=== PATIENT | female | born 1990 | race Caucasian/White ===

== ENCOUNTER 2023-12-10 07:13 | Outpatient (CLI) | payer BC, SELFPAY ==
--- NOTE | 2023-12-10 07:15 | CRLHL7_ITS ---
For Patients: As a result of the Century Cures Act, medical imaging exams and procedure reports are released immediately into your electronic medical record. You may view this report before your referring provider. If you have questions, please contact your health care provider. INDICATION: Evaluate anatomy. COMPARISON: none TECHNIQUE: Real time amador scale imaging of the fetus was performed as well as color Doppler analysis of the umbilical vessels. FINDINGS: Sonographic imaging demonstrates a single living intrauterine gestation. Fetus demonstrates a regular cardiac rate of 144 beats per minute. Fetus has a vertex position. The placenta lies posteriorly without evidence of placenta previa. Placental edge 6.4 cm away from the internal cervical os. Amniotic fluid volume appears normal. Single deepest vertical pocket: 4.2 cm. The cervix is closed and measures 4.1 cm in length. The composite ultrasound gestational age is calculated at 20 weeks 0 days with an estimated sonographic due date of 04/28/2024. The estimated weight is 363 grams which lies at the 84th %. The following biometric measurements were obtained: Biparietal diameter: 4.5 cm/19 weeks 5 days 42nd% Head circumference: 17.8 cm/19 weeks 5 days 34th% Abdominal circumference: 15.5 cm/20 weeks 5 days 72nd% Femur length: 3.4 cm/20 weeks 6 days 75th% The HC/AC ratio measures: 1.10 range (1.08-1.25) On anatomic survey, there is a normal appearance of the cerebral ventricles, cavum septi pellucidi, cisterna magna and cerebellum. The nose, and lips appear normal. Incomplete visualization of profile due to position. The cervical, thoracic and lumbar spine are well visualized and appear normal. There is a normal four-chamber heart view and the left and right ventricular outflow tracts appear normal. The diaphragm and stomach appear normal. The kidneys and bladder also appear normal. There is a normal three-vessel cord and cord insertion site. The four extremities appear normal. IMPRESSION: Concordance of clinical and sonographic dating. Incomplete visualization of the profile due to position. Remainder of the anatomic survey is normal. Short-term follow-up recommended. Dictated by oKstas Saldivar MD @ 12/10/2023 12:01:46 PM (Electronically Signed)
== END 2023-12-10 07:14 | disposition home or self-care (01) ==
PROVIDERS: Visit Provider Advanced Practice Midwife
DX: Z34.92 Encounter for supervision of normal pregnancy, unspecified, second trimester (principal); Z3A.20 20 weeks gestation of pregnancy
CPT/HCPCS: 76805

== ENCOUNTER 2023-12-24 13:53 | Outpatient (CLI) | payer BC, SELFPAY ==
--- NOTE | 2023-12-24 14:00 | US_ITS ---
Patient: YARELIS HODGSON Facility:?[facility] Patient ID:?[id number] Site Patient ID:?[id number]. Site :?[id number] Study:?US-OB Pelvis -12/24/2023 2:25:54 PM Ordering Physician:BANG MAHAN Final Report: INDICATION: Facial profile not seen on survey TECHNIQUE: Limited transabdominal two-dimensional amador-scale ultrasound examination. COMPARISON: 12/10/1999 FINDINGS: There is a living fetus with gestational age of 21 weeks 6 days by LMP and EDC 04/29/2024. The heart rate is measured at 137 beats per minute and the rhythm appears regular. The amniotic fluid volume is within normal limits with single deepest pocket of 4.1 cm. The placenta is posterior and superior to the cervical os. There is no evidence of previa. The cervical length is normal at 4.0 cm. The facial profile is visualized and grossly normal. IMPRESSION: 1. Living fetus with gestational age of 21 weeks 6 days by LMP EDC of 04/29/2024. 2. Facial profile grossly normal. Dictated by Ryan Park MD @ 12/25/2023 6:21:38 AM Signed by:?Ryan Park MD @12/25/2023 6:21:38 AM (Electronic Signature)
== END 2023-12-24 13:54 | disposition home or self-care (01) ==
LOC: US 13:53
PROVIDERS: Visit Provider Advanced Practice Midwife
DX: Z34.02 Encounter for supervision of normal first pregnancy, second trimester (principal); Z3A.21 21 weeks gestation of pregnancy
CPT/HCPCS: 76816

== ENCOUNTER 2024-02-09 09:04 | Outpatient (CLI) | payer BC, SELFPAY | END 2024-02-09 09:05 | disposition home or self-care (01) | LOC: NFLDREF 09:05 | PROVIDERS: Visit Provider Advanced Practice Midwife | DX: Z34.93 Encounter for supervision of normal pregnancy, unspecified, third trimester (principal) | CPT/HCPCS: 86592; 86850; J2791 ==

== ENCOUNTER 2024-02-11 07:53 | Outpatient (CLI) | payer BC, SELFPAY | END 2024-02-11 07:54 | disposition home or self-care (01) | LOC: NFLDREF 03-01 11:11 | PROVIDERS: Visit Provider Advanced Practice Midwife | DX: R73.09 Other abnormal glucose (principal) | CPT/HCPCS: 82951; 82952 ==

== ENCOUNTER 2024-03-22 10:15 | Outpatient (RCR) | payer BC, SELFPAY | END 2024-06-21 10:58 | disposition home or self-care (01) | PROVIDERS: Visit Provider Advanced Practice Midwife | DX: Z34.90 Encounter for supervision of normal pregnancy, unspecified, unspecified trimester (principal); M43.10 Spondylolisthesis, site unspecified; M62.81 Muscle weakness (generalized); M25.559 Pain in unspecified hip; M54.50 Low back pain, unspecified; Z51.89 Encounter for other specified aftercare | CPT/HCPCS: 97110; 97140; 97161 ==

== ENCOUNTER 2024-04-04 11:30 | Outpatient (CLI) | payer BC, SELFPAY | END 2024-04-04 11:31 | disposition home or self-care (01) | LOC: NFLDREF 04-21 20:35 | PROVIDERS: Visit Provider Advanced Practice Midwife | DX: Z34.83 Encounter for supervision of other normal pregnancy, third trimester (principal) | CPT/HCPCS: 87081; 87653 ==

== ENCOUNTER 2024-04-16 02:39 | Inpatient (IN) | payer BC, SELFPAY ==
[2024-04-16] VITALS (35 sets, daily range): BP systolic 122–151; BP diastolic 69–89; PULSE 85–219; RESP 16–20; TEMP 36.4–37.1; O2SAT 81–98; BMI 33.7
[2024-04-16] MEDS: LACTATED RINGERS 1000 ML 1,000 ML 125 ML IV (03:26)
[2024-04-16 03:27] LABS: Basophils Absolute Auto 0.01 K/uL (0.00-0.30); Basophils Percent Auto 0.1 % (0.0-3.0); Eosinophils Absolute Auto 0.07 K/uL (0.00-0.50); Eosinophils Percent Auto 0.8 % (0.0-7.0); Hematocrit 35.7 % (33.0-51.0); Hemoglobin* 12.4 gm/dL (12.0-16.0); Immature Granulocytes Abs Auto 0.04 K/uL (0.00-0.30); Immature Granulocytes Pct Auto 0.4 %; Lymphocytes Percent Auto 17.7 % (20-44); Mean Corpuscular HGB Conc 35 gm/dL (32-36); Mean Corpuscular Hemoglobin 32 pg (26-34); Mean Corpuscular Volume 91 fL (80-100); Monocytes Percent Auto 5.1 % (0.0-11.0); Neutrophils Percent Auto 75.9 % (42.0-72.0); Platelet Count* 170 K/uL (140-440); Red Blood Count 3.92 m/uL (4.00-5.20); White Blood Count* 9.21 K/uL (4.50-11.00)
[2024-04-16] MEDS: AMPICILLIN 2 GM in 0.9 % SODIUM CHLORIDE Mini-bag 100 ML IVPB (03:34)
[2024-04-16 03:41] LABS: Slide Review Reflex No
[2024-04-16] MEDS: AMPICILLIN 1 GM in 0.9 % SODIUM CHLORIDE Mini-bag 100 ML IVPB ×2 (07:34→11:35)
--- NOTE | 2024-04-16 08:29 | P.LDBA_ITS ---
Subjective History of Present Illness Time Seen by Provider: 08:40 Date Seen: 04/16/24 Narrative: Patient is being admitted to Labor and Delivery for SROM. She ruptured at home at 0100. She is a 33 year old at 38.1 weeks gestation. Her full history and physical was dictated by Loly Leyva CNM on 04/11/24. Please see this for details. She was sienna some before ROM but not painfully. Since rupture at 0100 she was feeling contractions but still not painfully. She pain to feel painful contraction and have an increase in bloody show around 0815. She is sienna every 2-3 minutes and is feeling some vaginal pressure at the peak of the contractions. She is planning an unmedicated water . Her SVE was 4- 5cm/90%/0 station with some bloody show noted. She would like to consider getting into the tub in the near future. 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 A- Rhogam at 28 weeks: received 02/09/2024 Rhogam PP: 2. Hx depression and ADHD. On Adderall 7.5 BID. 3. Migraines 4. Spondylolisthesis PT referral ordered 5. Adopted. Not aware of most of her biological family history. 6. BMI 32.6 at [facility]. Taking ASA. 7. Failed 1 hr GTT, passed 3 hour (3/4 values) 8. GBS +, recommend antibiotics in labor OB Labs from [facility] ([facility]):??? Blood type: A-, antibody screen negative.??? Hgb (09/22/23): 14.3??? Platelets (09/22/23): 178??? Rubella: Immune??? RPR: non-reactive??? HBsAg: not available??? HIV: negative??? GC/Chlamydia: negative/negative??? Pap (09/07/22): NIL, HPV neg? Hep C: negative TSH: 1.39 (denies personal or family history or indications for TSH at [facility]) ?? IMAGING:??? 1st trimester: Single living intrauterine gestation at 9weeks 4 days, EDC 04/29/2024??? COVID: first series and boosted x2 Flu: July 2023 TDAP: 02/18/2024 32wk Mental Health: 03/02/2024 OB - Problem Based A/P Additional Plan (1) SROM (spontaneous rupture of membranes): Status: Acute (2) Pain during labor: Status: Acute (3) Spondylolisthesis: Status: Acute (4) Rh negative status during in first trimester: Status: Acute (5) ADHD: Problem details: Has used Adderall in the past. May desire to restart. Status: Acute (6) Depression: Problem details: Wellbutrin 75mg BID Status: Acute (7) Migraine: Problem details: Imitrex Status: Acute Plan ASSESSMENT:? at 38.1 weeks gestation? GBS positive? complicated by: ?Spondylolistesis, migraines, history of depression and ADHD (on Wellbutrin and Adderall), GBS+? Blood type:?A- ?? PLAN:? 1. Antibiotic prophylaxis treatment per protocol. 2. Desires water . Consent signed. Hep C negative.? 3. Candidate for analgesia of choice. Planning unmedicated .? 4. Anticipate ? 5. Expectant management at this time.? 6. IV in place for prophylactic antibiotics. 7. Intermittent auscultation at this time.? ? Delivery/Labor/Induction Plan Plan: expectant management OB Result Labs Blood Type: A (-) negative Rubella: immune RPR/VDLR: nonreactive GBS Status: positive OB Exam Physical Exam Vital signs: Temp Pulse BP Pulse Ox 98.6 F 86 133/79 81 L 04/16/24 07:23 04/16/24 07:23 04/16/24 07:23 04/16/24 07:23 Narrative: Psychiatric:? Alert and oriented x3? HEENT:? Normocephalic, atraumatic? Neck:? Supple without adenopathy or thyromegaly? Lungs:? Clear to auscultation bilaterally? Heart:? Regular rate and rhythm, no murmur, rub or gallop? Abdomen:? Soft, nontender, and gravid? Extremities:? No edema or erythema? Detailed Labor and Delivery Exam Patient Gravid: Yes Dilation (cm): 4 Effacement (%): 90 Cervix position: mid Consistency: soft Contraction Frequency: 2-3 minutes Contraction intensity: Strong/Firm Fetus (Single) Station: 0 Amniotic Membrane Status: SROM Amniotic Membrane Fluid Description: Clear Heart Rate Baseline: 120 Monitor Accelerations: Present Monitor Decelerations: None [employer] Counter Assistant Variability: Moderate (6-25)
[2024-04-16] MEDS: OXYTOCIN 30 unit/500 ML in NS 30 UNIT/500 ML BAG 300 UNIT IVPB (13:33)
[2024-04-16] MEDS: LIDOCAINE 1 % PF 30 ML INJECTION (13:50)
--- NOTE | 2024-04-16 14:26 | W.PM.OBVAGDE ---
OB Procedure Vag Delivery Mother Details Mother Details: The patient is a 33 year-old, 2, Para 0, admitted on 04/16/24 at 38.1 weeks gestation. She presented after SROM at home. She was initially not sienna painfully but they increased after a few hours and she progressed normally into active labor. : 2 Para: 1 Weeks Gestation: 38.1 Admission Date: 04/16/24 Additional Details Amniotic Membrane Status: SROM Amniotic Membrane Rupture Date: 04/16/24 Amniotic Membrane Rupture Time: 01:00 Amniotic Membrane Fluid Description: Clear Analgesia/Anesthesia Type: None Waterbirth: No Pitcoin: Yes ([facility] only) Intrapartal Events: Prolonged 2nd Stage >2.5 Hrs Labor Onset: 07:30 Complete: 10:15 (presumed complete with pushing ) Pushin:15 Heart: heart tones during second stage were continuous monitoring for part of pushing due to a deceleration heard by the RN during pushing. During the tracing baseline 130 + accels, moderate variability. Variable decelerations were noted to the 90-100's lasting only 10-30 seconds with good return to baseline. Decision was made to return to intermittent auscultation after an adequate tracing was obtained due to patient wishes and no medical interventions in place. FHT doppled 125 without decreases heard. before or after the contraction. Tones were difficult to obtain at the end due to descent and maternal position. Delivery Details Delivery Date: 04/16/24 Delivery Time: 13:32 Route of delivery: Infant Gender: Female Infant Viability: Alive; Heart Rate Present Position at Delivery: OA Delivery Details: Patient was admitted for SROM and progressed normally. SROM noted at 0100 with clear fluid. Patient was presumed complete with pushing at 1015. of a viable female at 1332 on her back using tug of war. She had labored and pushing in the tub for a while before deciding to get out and labor out of the water. She was given the opportunity to get back into the tub before delivery but declined. Vertex delivered direct OA. No shoulder. There was a nuchal cord scarfed around her shoulders that made descent and delivery difficult. It was too tight to reduce but impeded delivery of the body and likely contributed to the slow descent in the second stage and once was noted. Head and body did deliver with lots of maternal effort, coaching and position changes. An episiotomy was considered but she was able to deliver the head before lidocaine was available. Delivery of the head to the rest of the body was 40 seconds but the anterior shoulder was not impacted at any point. Infant passed to mothers abdomen but was limp and pale without respiratory effort so the cord was immediately clamped and cut and she was brought to the warmer. APGARS were 4 at one minute and 6 at five minutes respectively. Mouth was deep suctioned and PPV was utilized. Intact placenta with a 3 vessel cord delivered spontaneously at 1345. Fundus firm. A small 2nd degree identified and repaired in typical fashion. QBL 200 cc. Mother and baby stable; mother plans to breastfeed. weight 8lb 9oz.? 1 Minute Interval Total Score: 4 5 Minute Interval Total Score: 6 10 Minute Interval Total Score: 9 Additional Details Shoulder Dystocia: No Placenta Delivery Time: 13:45 Placental Delivery Description: Spontaneous Delivery repair: Vicryl Procedure Done: Global Blood Loss: 200 Laceration: Perineal - 2nd Degree Episiotomy Description: None Blood Loss Measurement Type: QBL Bakri Used: No Sponge/Need Count Correct: Yes Cord Vessel Description: 3 Vessels, Nuchal Cord (over the shoulders ) and Tight Event Summary Status: Mother and infant were stable after delivery. Disposition: floor
[2024-04-16] MEDS: IBUPROFEN 600 MG TABLET PO ×2 (15:51→22:27)
[2024-04-16] MEDS: ACETAMINOPHEN 500 MG TABLET 1000 MG PO (20:08)
[2024-04-16] MEDS: BENZOCAINE/MENTHOL SPRAY 85 GM AEROSOL 1 APPLIC TOPICAL (22:30)
[2024-04-17] MEDS: IBUPROFEN 600 MG TABLET PO ×4 (03:23→20:53)
[2024-04-17 04:07] VITALS: BP 115/78; PULSE 83; RESP 16; TEMP 36.5; O2SAT 97
[2024-04-17 06:54] LABS: Hemoglobin* 11.3 gm/dL (12.0-16.0)
[2024-04-17 07:45] LABS: Alanine Aminotransferase* 21 U/L (4-35); Aspartate Amino Transferase* 33 U/L (12-35); Blood Urea Nitrogen* 12 mg/dL (5-24); Creatinine* 0.6 mg/dL (0.5-1.5); Est. Creatinine Clearance* 124.85; Estimated Glomerular Filt Rate 121 ml/min
--- NOTE | 2024-04-17 08:16 | P.OBPN_ITS ---
OB - PN:Subj Subjective Date Seen: 04/17/24 Narrative: Theresa is a 33 y.o. G 2 P 1 who was admitted to L & D for spontaneous onset of labor. ?She had a NVD that was uncomplicated. The patient feels well. ?The pain is well controlled with current medications. She had some elevated BP's in [place]. Labs WNL. ?She has no new complaints. ?She is breast feeding and reports things are going well. the patient has done well.? Vitals have been stable.? She has remained afebrile.? Has a good appetite, is tolerating a general diet. ?She is voiding without difficulty.? She is passing gas and has not had a bowel movement.? She is ambulating and denies any dizziness.? Has small amount of rubra lochia. Problems: none OB - PN: Obj Exam Physical Exam: Vital signs: Temp Pulse Resp BP Pulse Ox O2 Del Method 97.7 F 83 16 115/78 97 Room Air 04/17/24 04:07 04/17/24 04:07 04/17/24 04:07 04/17/24 04:07 04/17/24 04:07 04/17/24 04:07 Narrative: GENERAL APPEARANCE:? normal affect, alert, no distress MOOD:? appropriate CHEST:? clear to auscultation HEART:? regular rate and rhythm ABDOMEN:? soft, non-tender the uterine fundus is At Umbilicus, Midline and is appropriate for the stage of recovery. PERINEUM:? mild edema of the perineum, there is a Perineal Laceration,?2nd degree, that is healing well. EXTREMITIES:? normal and no edema OB - PN: Obj Data Labs Labs: Laboratory Results - last 24 hr 04/17/24 04/17/24 06:10 06:45 Hgb 11.3 L BUN 12 Creatinine 0.6 Estimated Creat Clear 124.85 Estimated GFR 121 AST 33 ALT 21 OB - PN: A/P Delivery Assessment and Plan (1) care and examination immediately after delivery: Status: Acute (2) Rh negative status during in first trimester: Status: Acute (3) ADHD: Problem details: Has used Adderall in the past. May desire to restart. Status: Acute (4) Depression: Problem details: Wellbutrin 75mg BID Status: Acute (5) Migraine: Problem details: Imitrex Status: Acute (6) Lactating mother: Status: Acute Plan day: 1 Plan: routine care Comments: plan: , may see if needed Hgb 11.3. GHTN diagnosed by elevated BP greater than 4 hours apart Labs WNL Continue to monitor BP Anticipate discharge home tomorrow
[2024-04-17] MEDS: DOCUSATE SODIUM 100 MG CAPSULE PO (09:32)
[2024-04-17 09:35] VITALS: BP 124/80; PULSE 93; RESP 16; TEMP 36.7; O2SAT 95
[2024-04-17] MEDS: buPROPion HCL 75 MG TABLET PO ×2 (09:44→20:54)
[2024-04-17 14:30] VITALS: BP 115/74; PULSE 88; RESP 16; TEMP 36.6; O2SAT 96
[2024-04-17 17:52] VITALS: BP 129/88; PULSE 88; RESP 16; TEMP 36.6
[2024-04-17 23:36] VITALS: BP 121/81; PULSE 83; RESP 16; TEMP 36.6; O2SAT 96
[2024-04-18 08:03] VITALS: BP 118/76; PULSE 82; RESP 14; TEMP 36.9; O2SAT 95
--- NOTE | 2024-04-18 08:30 | PM.OBDSVD1 ---
DS: Providers Provider Time Seen by Provider: 08:30 Date Seen: 04/18/24 Date of admission: 04/16/24 02:39 Primary care physician: Not a Local Provider Admitting Clinician: Cherelle Oh CNM Attending Physician on discharge: Josefina Miranda CNM Date of Discharge: 04/18/24 DS: Diagnosis Discharge Diagnosis (1) Lactating mother: Status: Acute (2) care and examination immediately after delivery: Status: Acute (3) Elevated blood pressure reading without diagnosis of hypertension: Status: Acute Exam Narrative: Exam Narrative: VSS, afebrile GENERAL APPEARANCE: ?normal affect, alert, no distress MOOD: ?appropriate HEENT: normocephalic, neck supple, full ROM CHEST: ?Symmetrical chest wall movement. ?Normal respiratory effort. ?Clear to auscultation HEART: ?regular rate and rhythm ABDOMEN: ?soft, non-tender. Uterine fundus is firm, at Umbilicus, Midline and is appropriate for the stage of recovery. ?Bowel sounds present. PERINEUM: ?mild edema of the perineum, there is a 2nd degree laceration that is healing well. EXTREMITIES: ?normal and no edema Const: Vital Signs, click to edit/add: Vital Signs - 24 hr 04/17/24 09:35 04/17/24 14:30 04/17/24 17:52 Temperature 98.0 F 97.9 F 97.9 F Pulse Rate [Left P ulse Oximeter] 93 88 88 Respiratory Rate 16 16 16 Blood Pressure [Ri ght Arm] 124/80 115/74 129/88 Pulse Oximetry 95 96 Oxygen Delivery Me thod Room Air Room Air 04/17/24 23:36 Temperature 98 F Pulse Rate [Left P ulse Oximeter] 83 Respiratory Rate 16 Blood Pressure [Ri ght Arm] 121/81 Pulse Oximetry 96 Oxygen Delivery Me thod Room Air Documenting provider has reviewed patient's vital signs: yes OB - DS: Summary Hospital Course Hospital Course: Theresa is a 33 y.o. who was admitted to L & D for labor. ?She had an uncomplicated NVD.?The patient feels well. ?The pain is well controlled with current medications. ?She has no new complaints. ?She is breast feeding and reports things are going well.? the patient has done well.? Vitals have been stable.? She has remained afebrile.? Has a good appetite, is tolerating a general diet. ?She is voiding without difficulty.? She is passing gas and has not yet had a bowel movement.? She is ambulating and denies any dizziness.? Has Small amount of rubra lochia. ?She is planning Paragard for prevention. Peripartum Data Infant delivery method: Vaginal Laceration description: Perineal - 2nd Degree complications: none Gender: Female Infant Discharge Plan: Home Status at Discharge Functional status at discharge: independent ambulation Overall status at discharge: patient is progressing back to baseline Time Spent with Patient Time attestation: Total time spent providing and/or coordinating discharge services: Time spent: Less than 30 minutes Discharge Plan Discharge Disposition: Home, Self-Care Date of Admission: 04/16/24 02:39 Attending Provider on Discharge: Josefina Miranda Primary Care Provider: Provider,Not a Local Condition: Stable Anticipated Discharge Date/Time: 04/18/24 12:00 Discharge Medications: New acetaminophen 500 mg Tablet 1,000 mg PO Q6H PRNQty: 0 0RF docusate sodium 100 mg Capsule 100 mg PO DAILY Qty: 90 2RF ibuprofen 600 mg Tablet 600 mg PO Q6H PRNQty: 60 0RF Continued riboflavin (vitamin B2) 100 mg tablet 100 mg PO QDAY magnesium 200 mg tablet 200 mg PO QDAY cholecalciferol (vitamin D3) 25 mcg (1,000 unit) capsule 25 mcg PO QDAY dextroamphetamine-amphetamine [Adderall] 20 mg tablet 10 mg PO BID Qty: 30 0RF Rx Instructions: administer doses at least 4-6 hours apart Managed by Primary however, patient is out of doses and has been unable to reach primary prescriber bupropion HCl 75 mg tablet 75 mg PO BID Rx Instructions: administer 6 hours apart Classic 28 mg iron- 800 mcg tablet PO DAILY Discontinued aspirin 81 mg tablet,delayed release (DR/EC) 81 mg PO QDAY ondansetron HCl 4 mg tablet 4 mg PO Q8H PRN Discharge Orders: Discharge Order (Routine); Ordered 04/18/24 Ordered By: Josefina Miranda Patient Education: OB Over the Counter Medication Information, OB Vaginal/Breast Feeding Additional Instructions: Discharge instructions were reviewed with the patient including signs and symptoms of infection and home going medications Nothing vaginally for 6 weeks: no tampons or intercourse Off Work or School for 6 weeks Follow [facility] for a BP check?in 3 days, may be a video visit Call with BP greater than or equal to 150/100 2-week visit: discuss feeding concerns, review control options and screen for anxiety/depression. 6-week visit for an annual exam. consultation services are available to all mothers and babies for the first year after delivery.? To make an appointment, please call [phone]. Activity Level: Activity as Tolerated Discharge Diet: Regular Follow Up Appointments: Provider,Not a Local [Primary Care Provider] - [facility] [Provider Group] Forms: [employer] Info Instructions
[2024-04-18] MEDS: buPROPion HCL 75 MG TABLET PO (09:17)
[2024-04-18] MEDS: ACETAMINOPHEN 500 MG TABLET 1000 MG PO (09:17)
[2024-04-18] MEDS: IBUPROFEN 600 MG TABLET PO (09:17)
[2024-04-18] MEDS: DOCUSATE SODIUM 100 MG CAPSULE PO (09:18)
[2024-04-18 18:34] LABS: Rapid Plasma Reagin (RPR) Non Reactive (Non Reactive)
== END 2024-04-18 11:19 | disposition home or self-care (01) | DRG 560 ==
LOC: OB OUT 02:39 → OB 02:39
PROVIDERS: Advanced Practice Midwife; Admitting Provider Advanced Practice Midwife; Visit Provider Advanced Practice Midwife
DX: O70.1 Second degree perineal laceration during delivery (principal); O99.344 Other mental disorders complicating childbirth; F32.A Depression, unspecified; O99.824 Streptococcus B carrier state complicating childbirth; Z3A.38 38 weeks gestation of pregnancy; Z37.0 Single live birth; F90.9 Attention-deficit hyperactivity disorder, unspecified type; O26.893 Other specified pregnancy related conditions, third trimester; Z67.11 Type A blood, Rh negative; R03.0 Elevated blood-pressure reading, without diagnosis of hypertension; M43.10 Spondylolisthesis, site unspecified; G43.909 Migraine, unspecified, not intractable, without status migrainosus
CPT/HCPCS: 36415; 82565; 84450; 84460; 84520; 85018; 85025; 85461; 86592; 86850; 86870; 86880; 86900; 86901; 88307; A9270; J0290; J2001; J2791; J7120

== ENCOUNTER 2024-07-17 11:30 | Outpatient (RCR) | payer BC, SELFPAY | END 2024-11-14 23:59 | disposition home or self-care (01) | PROVIDERS: Visit Provider Registered Nurse | DX: N39.46 Mixed incontinence (principal); K59.00 Constipation, unspecified; R27.8 Other lack of coordination; Z51.89 Encounter for other specified aftercare | CPT/HCPCS: 97161; 97535 ==

== ENCOUNTER 2025-09-21 07:25 | Outpatient (CLI) | payer OTHER, BC, SELFPAY | END 2025-09-21 07:26 | disposition home or self-care (01) | PROVIDERS: PCP Family Medicine; Visit Provider Family Medicine | DX: M54.16 Radiculopathy, lumbar region (principal); M51.369 Other intervertebral disc degeneration, lumbar region without mention of lumbar back pain or lower extremity pain | CPT/HCPCS: 64483; Q9966 ==